=== PATIENT | female | born 1995 ===

== ENCOUNTER 2017-11-20 12:29 | Emergency (ER) | payer BC ==
--- NOTE | 2017-11-20 13:04 | UC ---
Skin Complaint HPI - HPI Summary HPI Summary: The patient is a 22-year-old female presents here with lower lip. She denies having any ulcerations on her lip. No perioral area taylor and itches. She has used no new soaps. No used any facial products. He is not recently changed her toothpaste. Her lip swelling seems to worsen when out in the sun. - History of Current Complaint Chief Complaint: UCSkin Time Seen by Provider: 11/20/17 12:49 Stated Complaint: RASH Hx Obtained From: Patient Hx Last Menstrual Period: 11/06/17 Onset/Duration: Gradual Onset, Lasting Days Skin Exposure Onset/Duration: Minutes Ago Timing: Constant Onset Severity: Mild Current Severity: Mild Pain Intensity: 4 Pain Scale Used: 0-10 Numeric Location: Other - lower lip Character: Pruritus, Pain - burning Aggravating Factor(s): Other - sun Alleviating Factor(s): Other - chap stick Associated Signs & Symptoms: Positive: Negative Review of Systems Constitutional: Negative Skin: Negative Eyes: Negative ENT: Negative Respiratory: Negative Cardiovascular: Negative Gastrointestinal: Negative Genitourinary: Negative Motor: Negative Neurovascular: Negative Musculoskeletal: Negative Neurological: Negative Psychological: Negative Is Patient Immunocompromised?: No All Other Systems Reviewed And Are Negative: Yes PMH/Surg Hx/FS Hx/Imm Hx Previously Healthy: Yes - Surgical History Surgical History: Yes Surgery Procedure, Year, and Place: hernia tonsils - Family History Known Family History: Positive: Hypertension - Social History Alcohol Use: Occasionally Substance Use Type: None Smoking Status (MU): Never Smoked Tobacco Physical Exam Triage Information Reviewed: Yes Appearance: Well-Appearing, No Pain Distress, Well-Nourished Vital Signs: Initial Vital Signs Temp 98 F 11/20/17 12:42 Pulse 89 11/20/17 12:42 Resp 16 11/20/17 12:42 BP 118/83 11/20/17 12:42 Pulse Ox 100 11/20/17 12:42 Vital Signs Reviewed: Yes Eyes: Positive: Conjunctiva Clear ENT: Positive: Hearing grossly normal. Negative: Nasal congestion, Nasal drainage, Trismus, Muffled voice, Hoarse voice Dental Exam: Normal Neck exam: Normal Respiratory: Positive: Lungs clear, Normal breath sounds, No respiratory distress Cardiovascular: Positive: RRR, No Murmur Musculoskeletal: Positive: ROM Intact, No Edema Neurological: Positive: Alert Psychological Exam: Normal Skin Exam: Other - lower lip edema/no lesions, no intraoral lesions, she has very minute papules around [place] border Course/Dx - Diagnoses Provider Diagnoses: angioedema of lower lip Discharge - Sign-Out/Discharge Documenting (check all that apply): Discharge/Admit/Transfer - Discharge Plan Condition: Stable Disposition: HOME Prescriptions: predniSONE [Deltasone 20 MG TAB] 40 mg PO DAILY #10 tab Patient Education Materials: Angioedema (ED) Referrals: No Primary Care Phys,NOPCP [Primary Care Provider] - - Billing Disposition and Condition Condition: STABLE Disposition: Home
== END 2017-11-20 13:20 | disposition home or self-care (01) ==
LOC: UCEAST 12:29
DX: T78.3XXA Angioneurotic edema, initial encounter (principal); X58.XXXA Exposure to other specified factors, initial encounter; Y92.9 Unspecified place or not applicable
CPT/HCPCS: 99202; G0463